=== PATIENT | male | born 1960 | race African-American/Black ===

== ENCOUNTER 2018-05-03 12:56 | Emergency (ER) | payer OTHER ==
[~2018-05-03] VITALS: Ht 162.6 cm; Wt 62.6 kg
[2018-05-03] MEDS ORDERED: ASPIRIN81 MG ORAL (13:07)
[2018-05-03] MEDS ORDERED: NOVOLIN R100 UNIT/1 SUBQ (13:07)
[2018-05-03] MEDS ORDERED: PAMELOR25 MG ORAL (13:07)
[2018-05-03] MEDS ORDERED: METFORMIN HCL1000 M1 ORAL (13:07)
[2018-05-03] MEDS ORDERED: LISINOPRIL5 MG ORAL ×2 (13:07→14:31)
[2018-05-03 13:22] VITALS: BP 115/77
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
[2018-05-03 13:59] LABS: APPEARANCE,URINE CLEAR; BILIRUBIN, URINE NEGATIVE (NEGATIVE); GLUCOSE, URINE (UA) 3+ (NEGATIVE); KETONES,URINE NEGATIVE (NEGATIVE); LEUKOCYTE ESTERASE ,URINE 1+ (NEGATIVE); NITRITE,URINE NEGATIVE (NEGATIVE); PH,URINE 5 (4.5-8.0); PROTEIN,URINE NEGATIVE (NEGATIVE); UROBILINOGEN,URINE 1 MG/DL (0.0-1.0)
[2018-05-03 14:01] LABS: BASOPHILS % (AUTO) 1.5 % (0.0-2.0); EOSINOPHILS % (AUTO) 3.5 % (0.0-3.0); HEMATOCRIT 41.3 % (42.0-52.0); HEMOGLOBIN 13.3 G/DL (14.2-18.0); LYMPHOCYTES % (AUTO) 41.1 % (20.0-45.0); MEAN CORPUSCULAR VOLUME 88 FL (80-99); NEUTROPHILS % (AUTO) 48.8 % (45.0-75.0); PLATELET COUNT 593 K/UL (150-450); RED BLOOD COUNT 4.68 M/UL (4.70-6.10); RED CELL DISTRIBUTION WIDTH 12.4 % (11.6-14.8); WHITE BLOOD COUNT 5.4 K/UL (4.8-10.8)
[2018-05-03 14:05] LABS: COLOR,URINE YELLOW
[2018-05-03 14:12] LABS: ANION GAP 10 mmol/L (5-15); BLOOD UREA NITROGEN 12 mg/dL (7-18); CALCIUM 9.6 MG/DL (8.5-10.1); CARBON DIOXIDE 28 MMOL/L (21-32); CHLORIDE 101 MMOL/L (98-107); CREATININE 0.6 MG/DL (0.55-1.30); POTASSIUM 4.8 MMOL/L (3.5-5.1); SODIUM 139 MMOL/L (136-145)
[2018-05-03 14:18] LABS: ALANINE AMINOTRANSFERASE 45 U/L (12-78); ALBUMIN 3.4 G/DL (3.4-5.0); ALBUMIN/GLOBULIN RATIO 0.8 (1.0-2.7); ALKALINE PHOSPHATASE 186 U/L (46-116); ASPARTATE AMINO TRANSFERASE 15 U/L (15-37); BILIRUBIN,TOTAL 0.6 MG/DL (0.2-1.0)
[2018-05-03] MEDS ORDERED: LIDOCAINE700 M1 TP (14:31)
[2018-05-03] MEDS ORDERED: TYLENOL EXTRA500 MG ORAL (14:31)
[2018-05-03] MEDS ORDERED: FREESTYLE LITE1 EACH MC (14:31)
[2018-05-03 16:14] VITALS: BP 122/80
--- NOTE | 2018-05-03 17:01 | Diagnostic Imaging Report ---
Indication: Abdominal pain Technique: One view of the pelvis Comparison: none Findings: There is mild degenerative proliferative changes of the bilateral acetabula. The joint spaces are preserved. No acute fractures. No dislocations. Surgical clips are seen in both groins Impression: No acute process. Findings as noted
--- NOTE | 2018-05-03 17:08 | Diagnostic Imaging Report ---
Indication: Left hip pain Technique: 2 views of the left hip Comparison: none Findings: There is mild degenerative proliferative changes of the left acetabulum. No acute fractures. No dislocations. Joint spaces are preserved. Surgical clips are seen in the left groin and proximal thigh. Impression: No acute process. Incidental findings as noted
== END 2018-05-03 16:14 | disposition home or self-care (01) ==
LOC: EMR 13:33
DX: M25.552 Pain in left hip (principal); E11.9 Type 2 diabetes mellitus without complications; M16.12 Unilateral primary osteoarthritis, left hip; Z76.0 Encounter for issue of repeat prescription; F17.200 Nicotine dependence, unspecified, uncomplicated; F14.90 Cocaine use, unspecified, uncomplicated; K76.0 Fatty (change of) liver, not elsewhere classified
CPT/HCPCS: 36415; 72170; 73502; 80053; 81003; 85025; 85651; 86140; 99284

== ENCOUNTER 2018-11-11 14:05 | Emergency (ER) | payer OTHER ==
[~2018-11-11] VITALS: Ht 162.6 cm; Wt 72.6 kg
[~2018-11-11 14:05] MED LIST: ASPIRIN81 MG ORAL; FREESTYLE LITE1 EACH MC; LIDOCAINE700 M1 TP; LISINOPRIL5 MG ORAL; METFORMIN HCL1000 M1 ORAL; NOVOLIN R100 UNIT/1 SUBQ; PAMELOR25 MG ORAL; TYLENOL EXTRA500 MG ORAL
[2018-11-11] MEDS ORDERED: LANTUS SOL100 UNIT/1 SUBQ (14:16)
--- NOTE | 2018-11-11 14:23 | NUR ---
ED Nurse Note: pt walked in due to lower back pain started 3 weeks ago and got worsen 1 week ago, pt unable to go to md appointment for his diabetis medication and was having high blood sugar at the moment. pt statd his bs is 420 at home and was 362 on ed arrival. pt not in distress. pt looks pale and warm to touch. ermd on bedside. will continue to monitor.
[2018-11-11] MEDS ORDERED: Levemir Flexpen SUBQ STA (14:25)
[2018-11-11 14:26] VITALS: BP 123/88
--- NOTE | 2018-11-11 14:29 | Emergency Room Report ---
History of Present Illness General Chief Complaint: Abnormal Labs Source: Patient Present Illness HPI Patient presents with 2 problems. One is that he has back pain. He has been taking Tylenol at home. Yesterday carried a heavy box on his shoulder and has left back spasms as a result. He has chronic back pain which is intermittent. He had good relief the day before taking Tylenol at home. No blood thinners, oncologic problems, incontinence or unilateral weakness/numbness. He rates the pain 10/10, aching, slight radiation to the side of his back and hip. The second is that he has run out of his insulin. He has not taken it for 3 days. His blood sugar at home was 425. He is having polyuria and polydipsia but no other symptoms. He just needs a prescription but also wants to get a shot of insulin here. No fevers, chills, chest pain, palpitations, nausea, vomiting, diarrhea, dysuria , abdominal pain, shortness of breath, depression, visual changes, headache. Allergies: Coded Allergies: No Known Allergies (Unverified , 05/03/18) Patient History Past Medical History: see triage record Social History: Reports: smoking Social History Narrative from home Reviewed Nursing Documentation: PMH: Agreed; PSxH: Agreed Nursing Documentation-PMH Past Medical History: No History, Except For Hx Diabetes: Yes Hx Gastrointestinal Problems: Yes - fatty liver Review of Systems All Other Systems: negative except mentioned in HPI Physical Exam Vital Signs Date Time Temp Pulse Resp B/P (MAP) Pulse Ox O2 Delivery O2 Flow Rate FiO2 11/11/18 14:12 97.9 98 16 123/88 (100) 95 Room Air Sp02 EP Interpretation: reviewed, normal General Appearance: well appearing, no apparent distress, GCS 15 Head: normocephalic, atraumatic Eyes: bilateral eye normal inspection, bilateral eye PERRL ENT: hearing grossly normal, normal voice, moist mucus membranes Neck: full range of motion, supple Respiratory: lungs clear, normal breath sounds, no respiratory distress, speaking full sentences Cardiovascular #1: regular rate, rhythm, no edema Cardiovascular #2: 2+ radial (R) Gastrointestinal: normal inspection, normal bowel sounds Genitourinary: no CVA tenderness Musculoskeletal: no calf tenderness, other - lumbar paraspinous muscle spasm, able to sit, stand and bend over without difficulty Neurologic: alert, motor strength/tone normal, DTRs symmetric, sensory intact, normal gait Psychiatric: mood/affect normal Reflexes: 2+ tricep (L), 2+ knee (R); 1+ ankle (R), 1+ ankle (L) Skin: no rash Medical Decision Making Diagnostic Impression: Primary Impression: Hyperglycemia Additional Impression: Back muscle spasm ER Course Patient presents with high blood sugar and back muscle spasms. The Accu-Chek here is 367. He will be given a dose of Levemir insulin and regular insulin. By his sliding scale he thinks that he needs 40 units however were only getting give him 30year. Also he will receive a prescription for the R pen. He also is requesting test strips. These will be provided. In addition he will receive a shot of Toradol for his back pain. Prescription for Robaxin is also given to the patient. The patient is stable for outpatient observation and treatment. He is advised to return if he is not doing well. Last Vital Signs Date Time Temp Pulse Resp B/P (MAP) Pulse Ox O2 Delivery O2 Flow Rate FiO2 11/11/18 15:00 97.9 11/11/18 15:00 81 16 123/88 95 Room Air Status: improved Disposition: HOME, SELF-CARE Condition: Improved Scripts Lancets (FREESTYLE LANCETS) 1 Each Each EACH MC NEEDED, #100 Prov: Geovanni Zamora MD 11/11/18 Methocarbamol* (ROBAXIN*) 500 Mg Tablet 500 MG PO TID, #10 TAB 0 Refills Prov: Geovanni Zamora MD 11/11/18 [basaglar kwick pen] No Conflict Check UNITS SQ BID PRN for as directed, #1 UNIT 2 Refills Prov: Geovanni Zamora MD 11/11/18 Referrals: [facility],REFERRING (PCP) Geovanni Zamora MD Nov 11, 2018 14:29
[2018-11-11] MEDS ORDERED: Ketorolac 30mg Inj IM ONE (14:30)
[2018-11-11] MEDS ORDERED: Insulin Human Regular 100units/ml 3ml SUBQ ONE (14:30)
[2018-11-11] MEDS ORDERED: ROBAXIN500 MG PO (14:35)
[2018-11-11] MEDS ORDERED: INSULIN GLARGINE SQ (14:35)
[2018-11-11] MEDS ORDERED: FREESTYLE LANC1 EACH MC (14:40)
--- NOTE | 2018-11-11 14:50 | NUR ---
ED Nurse Note: pt medicated and tolerated well
[2018-11-11 15:00] VITALS: BP 123/88
--- NOTE | 2018-11-11 15:00 | NUR ---
ER DISCHARGE NOTE: Patient is cleared to be discharged per ERMD, pt is aox4, on room air, with stable vital signs. pt was given dc and prescription instructions, pt was able to verbalize understanding, pt id band removed without complications. pt is able to ambulate with steady gait. pt took all belongings.
== END 2018-11-11 15:00 | disposition home or self-care (01) ==
LOC: EMR 14:22
DX: E11.65 Type 2 diabetes mellitus with hyperglycemia (principal); M62.830 Muscle spasm of back; G89.29 Other chronic pain; M54.9 Dorsalgia, unspecified
CPT/HCPCS: 96372; 99283; J1815; J1885; S5561